=== PATIENT | male | born 1990 | race Caucasian/White ===

== ENCOUNTER 2018-11-08 10:28 | Emergency (ER) | payer OTHER ==
[2018-11-08] MEDS ORDERED: HYDROCODONE/ACETAMINOPHEN 5-325 MG TABLET PO ONE (11:47)
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
[2018-11-08 13:32] VITALS: BP 117/74
== END 2018-11-08 13:32 | disposition home or self-care (01) ==
LOC: ER 10:28
DX: S93.401A Sprain of unspecified ligament of right ankle, initial encounter (principal); W20.8XXA Other cause of strike by thrown, projected or falling object, initial encounter; Y93.89 Activity, other specified; B36.9 Superficial mycosis, unspecified
CPT/HCPCS: 99283; 73610; L1902